=== PATIENT | female | born 1960 | race Caucasian/White ===

== ENCOUNTER 2017-07-10 01:15 | Emergency (ER) | payer OTHER ==
[~2017-07-10] VITALS: Ht 149.9 cm; Wt 49.9 kg
--- NOTE | ~2017-07-10 | CR132 ---
[facility] A Service of [facility] & [facility] RADIOLOGY TEXT RESULTS PATIENT: JUSTINA DILLON LOCATION: [facility] : 58 UNIT #: [id number] AGE: [address]: Haley Wilkes APRN SEX: F ORDER DR: [id number] [facility] [address] [place], [place] [address] [id number] MR#: [id number] Acc #: [id number] NAME: JUSTINA DILLON : 1960 SEX: F STUDY DATE/TIME: 07/10/2017 01:54 UNIT: [facility] ROOM: STUDY DESCRIPTION: CR Forearm 2 View Lt Attending Physician: Haley Wilkes A.P.R.N. Ordering Physician: Haley Wilkes A.P.R.N. Primary Care Physician: No Primary Care Physician MEDICAL IMAGING REPORT This report is preliminary unless electronic signature is present EXAM Left forearm 07/10 at 01:54. INDICATIONS Left forearm pain today. No trauma. FINDINGS 2 views of the left forearm were obtained. No fracture or malalignment is seen. There are no radiopaque foreign bodies. There does appear to be soft tissue injury over the distal forearm. Please correlate with history. IMPRESSION The bones are normal and there are no radiopaque foreign bodies. There does appear to be some soft tissue injury over the distal forearm. Please correlate with history as the supplied history appears inaccurate. Dictated by... Farshad Hansen Jr., M.D. THIS IS AN ELECTRONICALLY VERIFIED REPORT Farshad Hansen Jr., M.D. at 07/11/2017 9:11 PM SAGE/beti TD: 07/11/2017 09:02 JOB #: [id number] MEDICAL IMAGING REPORT Page 1 of 1 COPY
[~2017-07-10 01:15] MED LIST: LORTAB 7.5-5001 TAB PO; PEN-VEE K PO
[2017-07-10] MEDS ORDERED: ATIVAN2 M1 PO (01:19)
== END 2017-07-10 04:36 | disposition home or self-care (01) ==
LOC: CED 01:15
DX: S51.812A Laceration without foreign body of left forearm, initial encounter (principal); F17.210 Nicotine dependence, cigarettes, uncomplicated; F41.9 Anxiety disorder, unspecified; Z88.2 Allergy status to sulfonamides; W45.8XXA Other foreign body or object entering through skin, initial encounter; Y92.009 Unspecified place in unspecified non-institutional (private) residence as the place of occurrence of the external cause; Z23 Encounter for immunization
CPT/HCPCS: 12005; 73090; 90471; 90715; 99283